=== PATIENT | male | born 1950 | race Caucasian/White ===

== ENCOUNTER 2018-05-14 12:12 | Inpatient (IN) ==
[2018-05-14 20:50] LABS: Baso % (Auto) 0.6 % (0.0-2.0); Eos % (Auto) 0.1 % (0.0-4.0); Hematocrit 48.3 % (39.0-51.0); Hemoglobin 16.6 gm/dL (13.0-17.0); Lymph # (Auto) 1.3 th/mm3 (1.0-4.8); Lymph % (Auto) 15.4 % (9.0-44.0); Mean Corpuscular HGB Conc 34.4 % (32.0-36.0); Mean Corpuscular Hemoglobin 33.2 pg (27.0-34.0); Mean Corpuscular Volume 96.4 fL (80.0-100.0); Mean Platelet Volume 7.2 fL (7.0-11.0); Mono # (Auto) 0.5 th/mm3 (0.0-0.9); Mono % (Auto) 6.4 % (0.0-8.0); Neut # (Auto) 6.3 th/mm3 (1.8-7.7); Neut % (Auto) 77.5 % (16.0-70.0); Platelet Count 178 th/mm3 (150-450); Red Blood Count 5.01 mil/mm3 (4.50-5.90); Red Cell Distribution Width 13.9 % (11.6-17.2); White Blood Count 8.1 th/mm3 (4.0-11.0)
[2018-05-14 21:05] LABS: Albumin 3.3 g/dL (3.4-5.0); Anion Gap 20 meq/L (5-15); Aspartate Aminotransferase 202 U/L (15-37); Blood Urea Nitrogen 28 mg/dL (7-18); Calcium 8.9 mg/dL (8.5-10.1); Carbon Dioxide 18.7 meq/L (21.0-32.0); Chloride 100 meq/L (98-107); Glomerular Filtration Rate 69 mL/min (>89); Glucose,Random 57 mg/dL (74-106); Potassium 4.3 meq/L (3.5-5.1); Sodium 139 meq/L (136-145)
[2018-05-14 21:06] LABS: Alanine Aminotransferase 98 U/L (12-78)
[2018-05-14 21:16] LABS: Alkaline Phosphatase 81 U/L (45-117); Total Protein 7.2 g/dL (6.4-8.2)
[2018-05-14 21:19] LABS: Alcohol 23 mg/dL (0-5)
[2018-05-14] MEDS: Sod Chloride 0.9% Inj 1,000 ML IV.SIG SCH ×2 (21:35→23:10)
[2018-05-14 21:49] LABS: Amphetamine Screen,Urine Neg (Neg); Barbiturate Screen,Urine Neg (Neg); Cannabinoid Screen,Urine Neg (Neg); Cocaine Screen,Urine Neg (Neg)
[2018-05-14 21:50] LABS: Opiate Screen,Urine Neg (Neg)
--- NOTE | 2018-05-14 21:55 | ED ---
HPI General Chief Complaint: Psychiatric Symptoms Stated Complaint: psych eval Time Seen by Provider: 05/14/18 20:05 Source: patient Mode of arrival: ambulatory Limitations: no limitations History of Present Illness HPI Narrative: 68 yo M patient reports suicidal ideation. He reports a recent discharge from inpatient hospitalization where he was evidently notified of liver disease and lung disease. The patient drinks alcohol every day, at least 5 whiskey drinks. He also smokes daily approximately 1 pack/day. He was advised to come to the ED by his steward/stewardess second class oncologist. The patient is worried about her cancer and if he does have cancer states he would not have a will live. He also mentioned intent to harm towards others however was nonspecific after some further discussion. Patient reports he does have a firearm in his house. MD complaint: Reports suicidal ideation and feels depressed Onset (ago): day(s) Related Data Allergies Allergy/AdvReac Type Severity Reaction Status Date / Time MEGAN Inhibitors Allergy Swelling Verified 05/14/18 20:15 of Lip/Tongue/Throat ARB-Angiotensin Receptor Allergy Swelling Verified 05/14/18 20:15 Antagonist of Lip/Tongue/Throat codeine Allergy Hives Verified 05/14/18 20:15 lisinopril Allergy Swelling Verified 05/14/18 20:15 of Lip/Tongue/Throat Review of Systems ROS: all other systems reviewed are negative PMFSH Medical History Medical History Anxiety (Acute) Depression (Acute) Hypertension (Acute) Pneumonia (Acute) Surgical History Surgical History History of cataract extraction with lens replacement (Acute) History of tonsillectomy (Acute) Social History Social History Smoking Status: Current every day smoker Tobacco Type: Cigarettes How Often Do You Have a Drink Containing Alcohol: 2 to 3 times a week Recent Travel in [facility] within the Last 8 Weeks: No Recent Out of Country Travel within the Last 8 Weeks: No Immunization History Tetanus Immunization: Unsure Exam Narrative Exam Narrative: GENERAL: 68-year-old male well-nourished well-developed mildly anxious SKIN: Focused skin assessment warm/dry. HEAD: Atraumatic. Normocephalic. EYES: Pupils equal and round. No scleral icterus. No injection or drainage. ENT: No nasal bleeding or discharge. Mucous membranes pink and moist. NECK: Trachea midline. No JVD. CARDIOVASCULAR: Regular rate and rhythm. No murmur appreciated. RESPIRATORY: No accessory muscle use. Clear to auscultation. Breath sounds equal bilaterally. GASTROINTESTINAL: Abdomen soft, non-tender, nondistended. Hepatic and splenic margins not palpable. MUSCULOSKELETAL: No obvious deformities. No clubbing. No cyanosis. No edema. NEUROLOGICAL: Awake and alert. No obvious cranial nerve deficits. Motor grossly within normal limits. Normal speech. PSYCHIATRIC: Suicidal ideation. Patient reports some homicidal ideation. Course Initial Documented Vital Signs Temperature 97.6 F 05/14/18 12:17 Pulse Rate 82 05/14/18 12:17 Respiratory Rate 16 05/14/18 12:17 Blood Pressure 132/73 05/14/18 12:17 Pulse Oximetry 96 05/14/18 12:17 Last Documented Vital Signs Temperature 97.6 F 05/14/18 12:17 Pulse Rate 79 05/14/18 20:16 Respiratory Rate 22 05/14/18 20:16 Blood Pressure 176/86 H 05/14/18 20:16 Pulse Oximetry 100 05/14/18 21:33 Medical Decision Making MDM Narrative Medical decision making narrative: The patient is a 88-year-old male who arrives with suicidal ideation after recent notification of chronic medical disease. Workup reveals an anion gap of 20 however he does have elevated alcohol level. He has received IV fluids and a repeat BMP was ordered to be obtained after 2 L normal saline infusion. Patient drinks whiskey daily and an element of alcohol withdrawal syndrome is of concern. He received 2 mg IV Ativan and 10 mg Valium. Anticipated closure of anion gap with IV hydration and repeat blood work will proceed medical clearance for evaluation by psychiatry service. Repeat BMP reveals anion gap closure. Patient is medically cleared for evaluation by psychiatry service. Patient will be monitored in the ER until time of transfer to the psychiatry unit or discharged home. Medical Screen Exam Complete: Yes Emergency Medical Condition: Yes Differential Diagnosis Differential Diagnosis: Altered mental status/psychosis due to infection/ environmental exposure/metabolic abnormality, polypharmacy, alcohol abuse/ intoxication, illicit or prescribed drug abuse, malingering/secondary gain, non- organic psychiatric disease Lab Data Lab results narrative: AG 20 Result diagrams: 05/14/18 20:30 05/14/18 22:55 Lab Results 05/14/18 05/14/18 05/14/18 Range/Units 20:30 20:30 21:30 WBC 8.1 (4.0-11.0) th/mm3 RBC 5.01 (4.50-5.90) mil/mm3 Hgb 16.6 (13.0-17.0) gm/dL Hct 48.3 (39.0-51.0) % MCV 96.4 (80.0-100.0) fL MCH 33.2 (27.0-34.0) pg MCHC 34.4 (32.0-36.0) % RDW 13.9 (11.6-17.2) % Plt Count 178 (150-450) th/mm3 MPV 7.2 (7.0-11.0) fL Neut % (Auto) 77.5 H (16.0-70.0) % Lymph % (Auto) 15.4 (9.0-44.0) % [place] % (Auto) 6.4 (0.0-8.0) % Eos % (Auto) 0.1 (0.0-4.0) % Baso % (Auto) 0.6 (0.0-2.0) % Neut # (Auto) 6.3 (1.8-7.7) th/mm3 Lymph # (Auto) 1.3 (1.0-4.8) th/mm3 [place] # (Auto) 0.5 (0.0-0.9) th/mm3 Eos # (Auto) 0.0 (0.0-0.4) th/mm3 Baso # (Auto) 0.0 (0.0-0.2) th/mm3 WBC Differential . Differential Comment Auto diff final Sodium 139 (136-145) meq/L Potassium 4.3 (3.5-5.1) meq/L Chloride 100 (98-107) meq/L Carbon Dioxide 18.7 L (21.0-32.0) meq/L Anion Gap 20 H (5-15) meq/L BUN 28 H (7-18) mg/dL Creatinine 1.07 (0.60-1.30) mg/dL Estimated GFR 69 L (>89) mL/min POC Glucose (68-110) mg/dl Random Glucose 57 L (74-106) mg/dL Calcium 8.9 (8.5-10.1) mg/dL Prot Corrected Calcium (8.5-10.1) mg/dL Total Bilirubin 1.5 H (0.2-1.0) mg/dL AST 202 H (15-37) U/L ALT 98 H (12-78) U/L Alkaline Phosphatase 81 (45-117) U/L Total Protein 7.2 (6.4-8.2) g/dL Albumin 3.3 L (3.4-5.0) g/dL TSH 2.040 (0.358-3.740) uIU/mL Urine Opiates Screen Neg (Neg) Ur Barbiturates Screen Neg (Neg) Ur Amphetamines Screen Neg (Neg) U Benzodiazepines Scrn Pos H (Neg) Urine Cocaine Screen Neg (Neg) U Cannabinoids Screen Neg (Neg) Serum Alcohol 23 H (0-5) mg/dL 05/14/18 05/14/18 Range/Units 22:54 22:55 WBC (4.0-11.0) th/mm3 RBC (4.50-5.90) mil/mm3 Hgb (13.0-17.0) gm/dL Hct (39.0-51.0) % MCV (80.0-100.0) fL MCH (27.0-34.0) pg MCHC (32.0-36.0) % RDW (11.6-17.2) % Plt Count (150-450) th/mm3 MPV (7.0-11.0) fL Neut % (Auto) (16.0-70.0) % Lymph % (Auto) (9.0-44.0) % [place] % (Auto) (0.0-8.0) % Eos % (Auto) (0.0-4.0) % Baso % (Auto) (0.0-2.0) % Neut # (Auto) (1.8-7.7) th/mm3 Lymph # (Auto) (1.0-4.8) th/mm3 [place] # (Auto) (0.0-0.9) th/mm3 Eos # (Auto) (0.0-0.4) th/mm3 Baso # (Auto) (0.0-0.2) th/mm3 WBC Differential Differential Comment Sodium 138 (136-145) meq/L Potassium 3.8 (3.5-5.1) meq/L Chloride 102 (98-107) meq/L Carbon Dioxide 25.1 (21.0-32.0) meq/L Anion Gap 11 (5-15) meq/L BUN 26 H (7-18) mg/dL Creatinine 1.06 (0.60-1.30) mg/dL Estimated GFR 70 L (>89) mL/min POC Glucose 219 H (68-110) mg/dl Random Glucose 189 H D (74-106) mg/dL Calcium 7.3 L* D (8.5-10.1) mg/dL Prot Corrected Calcium 8.2 L (8.5-10.1) mg/dL Total Bilirubin (0.2-1.0) mg/dL AST (15-37) U/L ALT (12-78) U/L Alkaline Phosphatase (45-117) U/L Total Protein 5.4 L D (6.4-8.2) g/dL Albumin (3.4-5.0) g/dL TSH (0.358-3.740) uIU/mL Urine Opiates Screen (Neg) Ur Barbiturates Screen (Neg) Ur Amphetamines Screen (Neg) U Benzodiazepines Scrn (Neg) Urine Cocaine Screen (Neg) U Cannabinoids Screen (Neg) Serum Alcohol (0-5) mg/dL Discharge Plan Discharge Disposition Patient Disposition: 30 Still Patient Physicians Team ED Provider: Eduardo Mane Primary Care Provider: Primary Care Maria Antonia Herring Discharge Interventions Interventions: Vital Signs Last Done: 05/14/18 20:16 Status ED Status: Ready for Discharge
[2018-05-14] MEDS ORDERED: Sod Chloride 0.9% Inj 1,000 ML IV.SIG SCH (22:00)
[2018-05-14 23:32] LABS: Calcium 7.3 mg/dL (8.5-10.1); Carbon Dioxide 25.1 meq/L (21.0-32.0); Potassium 3.8 meq/L (3.5-5.1)
[2018-05-14 23:54] LABS: Total Protein 5.4 g/dL (6.4-8.2)
[2018-05-15] MEDS ORDERED: Acetaminophen 325 MG Tablet PO PRN (21:13)
[2018-05-15] MEDS ORDERED: Aluminum/Magnesium/Simethacone Susp 30 ML UDC PO PRN (21:13)
[2018-05-15] MEDS: LORazepam 1 MG Tablet PO PRN (21:49)
[2018-05-16] MEDS ORDERED: hydroCHLOROthiazide 25 MG Tablet PO SCH (09:00)
[2018-05-16] MEDS ORDERED: Spironolactone 25 MG Tablet PO SCH (09:00)
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
--- NOTE | 2018-05-16 15:30 | P.DIET ---
Nutritional Evaluation Type of nutrition evaluation: initial Nutrition screening: Weight Loss > 10 lbs Subjective Subjective Comments: Reports good appetite. PO intake 100% for breakfast and lunch today. Objective - Diagnosis Depressive DO, Alcohol Abuse - Objective [place] body weight: 83.6 kg % IBW: 99 Body Weight Used for Calculations: Actual (82.5kg) Energy Needs - Lower Range (kCal/kg): 25 Energy Needs - Upper Range (kCal/kg): 30 Lower Limit kCal/kg (kCals): 2,063 Upper Limit kCal/kg (kCals): 2,475 Lower Limit Protein Factor (Grams per Kg): 1.0 Upper Limit Protein Factor (Grams per Kg): 1.4 Lower Protein Needs (Protein): 83 Upper Protein Needs (Protein): 116 Dietitian Reviewed in Medical Record: Current diet, Curent medications, Intake & Output, Labs, Medical history Diet Order: Regular Oral Diet Intake Amount: Excellent 90%+ Objective Comments: PMH Includes: Anxiety, Depression, HTN, Pneumonia Glucose 189, POC Glucose 219 Meds Include: Atarax, Ativan, Pravachol, Aldactone Assessment Assessment: Pt is at nutritional risk r/t reported recent unintentional wt loss. Adequate po intake 50% or greater for meals here. Should a CHO-controlled diet be indicated, then Rec a [id number]. Assess need for an oral nutritional supplement as appropriate. Labs reviewed. Dietitian will follow. Recommendations: 1. Should a CHO-controlled diet be indicated, then Rec a [id number] 2. Assess need for an oral nutritional supplement as appropriate 3. Dietitian will follow Dietitian to Monitor: Lab values, Glucose level, Intake & Output, Weight change , PO Intake, Medical course
--- NOTE | 2018-05-16 17:17 | P.CON ---
History of Present Illness Service: [facility] Consult date: 05/16/18 Requesting Physician: Lai Vyas Reason for Consult: Security Researcher medical management Primary Care Provider: No Primary Care Physician Chief Complaint: "I have no concern, I have been moved alot from one room to the other" History of Present Illness: Patient is a 68-year-old male with past medical history of alcohol abuse, HTN, HLD, low potassium who initially came into the hospital for reports of suicidal ideation. He is now admitted to inpatient psychiatry and further evaluation. Consulted for assistance with medical management. Patient seen and examined today. As per nursing, patient has reported that he was discharged from another hospital where and he was notified to have liver and lung disease. Patient was asked regarding any concerns about liver or lung disease. Patient states that he was not diagnosed with any liver or lung disease. Patient admits to drinking 4-5 glasses of whiskey every day for the past 50 years of his life. States that his dad was an alcoholic. He reports that he has high blood pressure and high cholesterol and takes medication for it but cannot remember what medications he was on. Denies pain and discomfort. Denies SOB/ dyspnea. Denies chest pain, palpitations, headaches, dizziness. Denies fevers, chills, n/v/d. Denies dysuria. Review of Systems All other systems reviewed negative except as stated in HPI PMFSH - History History Provided By: Patient - Medical History Medical History: Medical History (Last Reviewed 05/16/18 @ 18:04 by CONG Bonilla) Anxiety Depression Hypertension Pneumonia - Surgical History Surgical History: Surgical History (Last Reviewed 05/16/18 @ 18:04 by CONG Bonilla) History of cataract extraction with lens replacement History of tonsillectomy - Family History Family History: Family History (Last Reviewed 05/16/18 @ 18:04 by CONG Bonilla) Other Alcohol abuse Family history normal - Social History I have reviewed the patient's Social History: Yes - Tobacco History Second Hand Smoke Exposure: Yes Tobacco Use In Past 30 Days: Yes Smoking Status: Current every day smoker Tobacco Type: Cigarettes - Alcohol History How Often Do You Have a Drink Containing Alcohol: 4 or more times a week - Substance Use History Substance History: Active Abuse - Substance Use Type Alcohol Status: Active Route Used: By Mouth Frequency: drinks daily, 5-6 drinks ( however I'm feeling) Reason for Use: Calm Down Comment: Patient reports drinking is part of his daily routine. - Travel History Recent Travel in the [place] Within the Last 8 Weeks: No Recent Travel Out of the Country Within the Last 8 Weeks: No - Immunization History Tetanus Immunization: Unable to Assess Hx Influenza Vaccine This Season: No Medications and Allergies Active Medications: Active Medications Acetaminophen (Tylenol) 650 mg PO Q4H PRN PRN Reason: Pain 1-5 or Temp >101F Al Hydrox/Mg Hydrox/Simethicone (Mag-Al Plus Susp Liq) 30 ml PO Q6H PRN PRN Reason: DYSPEPSIA Al Hydroxide/Mg Hydroxide (Milk Of Magnesia Liq) 30 ml PO DAILY PRN PRN Reason: CONSTIPATION Al Hydroxide/Mg Hydroxide (Milk Of Magnesia Liq) 30 ml PO Q12H PRN PRN Reason: Mild Constipation Diphenhydramine HCl (Benadryl) 50 mg PO HS PRN PRN Reason: INSOMNIA Escitalopram Oxalate (Lexapro) 10 mg PO DAILY [facility] Flumazenil (Romazecon Inj) 0.2 mg IV.PUSH Q1M PRN PRN Reason: OVERSEDATION Hydrochlorothiazide (Hydrodiuril) 25 mg PO DAILY [facility] Last Admin: 05/16/18 08:15 Dose: 25 mg Hydrochlorothiazide (Hydrodiuril) 25 mg PO DAILY [facility] Hydroxyzine HCl (Atarax) 50 mg PO Q6H PRN PRN Reason: ANXIETY Lorazepam (Ativan) 1 mg PO Q4H PRN PRN Reason: for CIWA 8-10 Last Admin: 05/15/18 21:49 Dose: 1 mg Lorazepam (Ativan) 2 mg PO Q2H PRN PRN Reason: for CIWA 11-14 Lorazepam (Ativan Inj) 2 mg IV.PUSH Q2H PRN PRN Reason: for CIWA 11-14 Lorazepam (Ativan Inj) 2 mg IV.PUSH Q1H PRN PRN Reason: for CIWA 15-20 Lorazepam (Ativan Inj) 1 mg IV.PUSH Q4H PRN PRN Reason: for CIWA 8-10 Lorazepam (Ativan Inj) 2 mg IV.PUSH Q15M PRN PRN Reason: for CIWA > 20 Nicotine (Habitrol 21 Mg Patch.24 Hr) 1 patch T-DERMAL DAILY [facility] Last Admin: 05/16/18 08:22 Dose: Not Given Patch Removal (Remove Old Patch) 1 each T-DERMAL HS [facility] Pravastatin Sodium (Pravachol) 40 mg PO HS [facility] Last Admin: 05/15/18 22:16 Dose: 40 mg Pravastatin Sodium (Pravachol) 40 mg PO QPM [facility] Sodium Chloride (Ns Flush) 2 ml IV.FLUSH PRN PRN PRN Reason: FLUSH AFTER USING IV ACCESS Spironolactone (Aldactone) 25 mg PO DAILY [facility] Last Admin: 05/16/18 08:15 Dose: 25 mg Spironolactone (Aldactone) 25 mg PO DAILY [facility] Allergies Allergy/AdvReac Type Severity Reaction Status Date / Time MEGAN Inhibitors Allergy Swelling Verified 05/14/18 20:15 of Lip/Tongue/Throat ARB-Angiotensin Receptor Allergy Swelling Verified 05/14/18 20:15 Antagonist of Lip/Tongue/Throat codeine Allergy Hives Verified 05/14/18 20:15 lisinopril Allergy Swelling Verified 05/14/18 20:15 of Lip/Tongue/Throat Home Medications Medication Instructions Recorded Confirmed Type hydrochlorothiazide 25 mg PO DAILY 05/15/18 05/15/18 History simvastatin 20 mg PO QPM 05/15/18 05/15/18 History spironolactone 25 mg PO DAILY 05/15/18 05/15/18 History Physical Exam Vital signs: Vital Signs 05/15/18 17:43 05/15/18 22:25 05/16/18 06:27 Temperature 98.3 F 98.3 F Pulse Rate 77 81 76 Respiratory Rate 20 18 17 Blood Pressure 136/79 164/93 H 142/84 H Pulse Oximetry 98 98 96 05/16/18 16:40 Temperature 97.6 F Pulse Rate 78 Respiratory Rate 18 Blood Pressure 117/76 Pulse Oximetry 100 Intake & Output 05/15/18 05/16/18 05/16/18 18:59 06:59 18:59 Weight 81.3 kg Other: Weight On Admission 81.3 kg Narrative: GENERAL: This is a well-nourished, well-developed patient, in no apparent distress. SKIN: Warm and dry HEENT: Normocephalic. Pupils equal round and reactive. Nose without bleeding. Airway patent. NECK: Trachea midline. CARDIOVASCULAR: Regular rate and rhythm without murmurs, gallops, or rubs. RESPIRATORY: Clear to auscultation. Breath sounds equal bilaterally. No wheezes , rales, or rhonchi. GASTROINTESTINAL: Abdomen soft, non-tender, nondistended. Bowel Sounds normoactive x4. MUSCULOSKELETAL: Extremities without clubbing, cyanosis, or edema. NEUROLOGICAL: Awake and alert. No focal neuro deficit. Moves all extremities. Normal speech. Assessment and Plan - Plan Patient is a 68-year-old male with past medical history of alcohol abuse, HTN, HLD, low potassium who initially came into the hospital for reports of suicidal ideation. He is now admitted to inpatient psychiatry and further evaluation. Consulted for assistance with medical management. Depression, suicidal ideation -Managed by psychiatry team EtOH abuse -CIWA -Folic acid, multivitamin, thiamine -Monitor for alcohol withdrawal/ seizures -No tremors noted Transaminitis -Possibly related to alcohol abuse -Avoid hepatotoxins -Recheck LFTs -US liver ordered, hepatitis panel r/o -may also check AFP, GTT HTN -Continue home medications hydrochlorothiazide, spironolactone -Clonidine as needed -Monitor BP HLD -Previously on simvastatin. Elevated LFTs. Will hold for now -Check lipid profile Tobacco abuse -Counseled. Nicotine patch DVT prop ambulatory Thank you for this consultation. We will follow patient with you. Code Status: Full Code Discussed Condition With: Patient, nursing Discharge Planning: DC disposition by primary team
[2018-05-16] MEDS: LORazepam 1 MG Tablet PO PRN (20:24)
[2018-05-17 06:23] VITALS: RESP 16
[2018-05-17 08:43] LABS: Baso % (Auto) 0.3 % (0.0-2.0); Eos # (Auto) 0.1 th/mm3 (0.0-0.4); Eos % (Auto) 1.7 % (0.0-4.0); Hematocrit 43.1 % (39.0-51.0); Hemoglobin 15.3 gm/dL (13.0-17.0); Lymph # (Auto) 2.4 th/mm3 (1.0-4.8); Lymph % (Auto) 30.8 % (9.0-44.0); Mean Corpuscular HGB Conc 35.6 % (32.0-36.0); Mean Corpuscular Hemoglobin 34.1 pg (27.0-34.0); Mean Corpuscular Volume 95.9 fL (80.0-100.0); Mean Platelet Volume 8.2 fL (7.0-11.0); Mono # (Auto) 0.5 th/mm3 (0.0-0.9); Mono % (Auto) 6.4 % (0.0-8.0); Neut # (Auto) 4.7 th/mm3 (1.8-7.7); Neut % (Auto) 60.8 % (16.0-70.0); Platelet Count 131 th/mm3 (150-450); Red Blood Count 4.49 mil/mm3 (4.50-5.90); Red Cell Distribution Width 13.9 % (11.6-17.2); White Blood Count 7.7 th/mm3 (4.0-11.0)
[2018-05-17] MEDS ORDERED: Escitalopram 10 MG Tablet PO SCH (09:00)
[2018-05-17 09:25] LABS: Albumin 2.9 g/dL (3.4-5.0); Anion Gap 8 meq/L (5-15); Aspartate Aminotransferase 71 U/L (15-37); Blood Urea Nitrogen 24 mg/dL (7-18); Calcium 9.3 mg/dL (8.5-10.1); Carbon Dioxide 31.6 meq/L (21.0-32.0); Chloride 96 meq/L (98-107); Glomerular Filtration Rate 77 mL/min (>89); Glucose,Random 86 mg/dL (74-106); Potassium 3.2 meq/L (3.5-5.1); Sodium 136 meq/L (136-145)
[2018-05-17] MEDS: hydroCHLOROthiazide 25 MG Tablet PO SCH (09:25)
[2018-05-17] MEDS: Folic Acid 1 MG Tablet PO SCH (09:26)
[2018-05-17] MEDS: Spironolactone 25 MG Tablet PO SCH (09:26)
[2018-05-17 09:30] LABS: Alanine Aminotransferase 56 U/L (12-78); Alkaline Phosphatase 72 U/L (45-117); Total Protein 6.6 g/dL (6.4-8.2)
--- NOTE | 2018-05-17 13:33 | P.PNPSY ---
Subjective Remarks: Patient seen in day room with medical student Speedy, and RN, chart reviewed, patient compliant medication. Patient states she slept better last night in spite of the noise on the unit. He overall feels calmer improved denying suicidality voices or visions today. Medicines have seen him today and that note is reviewed and agreed with patient continues to improve consider discharge tomorrow Review of Systems All other systems reviewed negative except as stated in HPI Mental Status Examination Appearance: Other (Somewhat scruffy) Consciousness: Alert Orientation: x4 Motor Activity: Other (Patient somewhat weak walking needs support to stand up) Speech: Unremarkable Language: Adequate Fund of Knowledge: Adequate Attention and Concentration: Adequate Memory: Unremarkable Mood: Sad Affect: Other (Decreased range and intensity) Thought Process & Associations: Intact Thought Content: Preoccupations (Some preoccupation with his medical issues) Hallucination Type: None Delusion Type: None Suicidal Ideation: No Suicidal Plan: No Suicidal Intention: No Homicidal Ideation: No Homicidal Plan: No Homicidal Intention: No Insight: Fair Judgment: Poor Assessment and Plan - Assessment (1) Adjustment disorder with mixed disturbance of emotions and conduct Code(s): F43.25 - Adjustment disorder with mixed disturbance of emotions and conduct Status: Acute (2) Alcohol abuse Code(s): F10.10 - Alcohol abuse, uncomplicated Status: Acute - Plan Plan: Patient mood improving he denies suicidality voices or visions. Compliant medication for now continue treatment consider discharge 1-2 days Justification for Continued Inpatient Stay: At this time patient would decompensate a place to a lower level of care Discharge Planning: To be determined Request Healthcare Surrogate/Guardian Advocate?: No
--- NOTE | 2018-05-17 16:42 | P.PN ---
Subjective Interval history: Follow-up visit transaminitis, alcohol abuse, possible cirrhosis. Patient seen and examined today. Reports he is doing okay. Denies any nausea, vomiting, diarrhea. Denies any abdominal pain. States he had ultrasound of his liver done in February and does not know any results from it or any findings for it. Denies any acute issues overnight. Denies any tremors, increase anxiety, any signs and symptoms of alcohol withdrawal. ` No acute issues as per nursing. Physical Exam Vital signs: Vital Signs 05/16/18 16:40 05/17/18 06:00 Temperature 97.6 F 97.9 F Pulse Rate 78 65 Respiratory Rate 18 16 Blood Pressure 117/76 167/88 H Pulse Oximetry 100 97 Intake & Output 05/16/18 05/17/18 05/17/18 18:59 06:59 18:59 Weight 81.2 kg Narrative: GENERAL: This is a well-nourished, well-developed patient, in no apparent distress. SKIN: Warm and dry HEENT: Normocephalic. Pupils equal round and reactive. Nose without bleeding. Airway patent. NECK: Trachea midline. CARDIOVASCULAR: Regular rate and rhythm without murmurs, gallops, or rubs. RESPIRATORY: Clear to auscultation. Breath sounds equal bilaterally. No wheezes , rales, or rhonchi. GASTROINTESTINAL: Abdomen soft, non-tender, nondistended. Bowel Sounds normoactive x4. MUSCULOSKELETAL: Extremities without clubbing, cyanosis, or edema. NEUROLOGICAL: Awake and alert. No focal neuro deficit. Moves all extremities. Normal speech. Results - Labs CBC & Chem 7: 05/17/18 07:48 05/17/18 07:48 Laboratory Results - last 24 hr 05/17/18 05/17/18 07:48 07:48 WBC 7.7 RBC 4.49 L Hgb 15.3 Hct 43.1 MCV 95.9 MCH 34.1 H MCHC 35.6 RDW 13.9 Plt Count 131 L MPV 8.2 Neut % (Auto) 60.8 Lymph % (Auto) 30.8 [place] % (Auto) 6.4 Eos % (Auto) 1.7 Baso % (Auto) 0.3 Neut # (Auto) 4.7 Lymph # (Auto) 2.4 [place] # (Auto) 0.5 Eos # (Auto) 0.1 Baso # (Auto) 0.0 WBC Differential . Differential Comment Auto diff final Sodium 136 Potassium 3.2 L Chloride 96 L Carbon Dioxide 31.6 Anion Gap 8 BUN 24 H Creatinine 0.98 Estimated GFR 77 L Random Glucose 86 Calcium 9.3 Total Bilirubin 1.1 H AST 71 H ALT 56 Alkaline Phosphatase 72 Total Protein 6.6 D Albumin 2.9 L Assessment and Plan - Plan Patient is a 68-year-old male with past medical history of alcohol abuse, HTN, HLD, low potassium who initially came into the hospital for reports of suicidal ideation. He is now admitted to inpatient psychiatry and further evaluation. Consulted for assistance with medical management. Depression, suicidal ideation -Managed by psychiatry team EtOH abuse -CIWA -Folic acid, multivitamin, thiamine -Monitor for alcohol withdrawal/ seizures -No tremors noted Hypokalemia -Supplements given -Repeat labs in a.m. Transaminitis -Possibly related to alcohol abuse -Avoid hepatotoxins -Recheck LFTs -US liver ordered, hepatitis panel r/o any other etiology. Pending -LFTs trending down HTN -Continue home medications hydrochlorothiazide, spironolactone -Clonidine as needed -Monitor BP HLD -Previously on simvastatin. Elevated LFTs. Will hold for now -Check lipid profile Tobacco abuse -Counseled. Nicotine patch DVT prop ambulatory Thank you for this consultation. We will follow patient with you. Discharge Planning: DC disposition by primary team
[2018-05-17 18:06] LABS: Chol/HDL Ratio 2.02 Ratio
[2018-05-17 23:21] LABS: Hepatitis A IgM Antibody Nonreactive (Nonreactive)
[2018-05-17 23:22] LABS: Hepatitits B Surface Antigen Nonreactive (Nonreactive)
[2018-05-18 06:25] VITALS: BP 133/80; PULSE 58; TEMP 98; O2SAT 98
[2018-05-18 08:18] LABS: Baso % (Auto) 0.3 % (0.0-2.0); Eos # (Auto) 0.2 th/mm3 (0.0-0.4); Eos % (Auto) 1.9 % (0.0-4.0); Hematocrit 42.2 % (39.0-51.0); Hemoglobin 14.6 gm/dL (13.0-17.0); Lymph # (Auto) 2.4 th/mm3 (1.0-4.8); Lymph % (Auto) 29.8 % (9.0-44.0); Mean Corpuscular HGB Conc 34.6 % (32.0-36.0); Mean Corpuscular Hemoglobin 33.7 pg (27.0-34.0); Mean Corpuscular Volume 97.4 fL (80.0-100.0); Mean Platelet Volume 8.3 fL (7.0-11.0); Mono # (Auto) 0.6 th/mm3 (0.0-0.9); Mono % (Auto) 7.2 % (0.0-8.0); Neut # (Auto) 4.9 th/mm3 (1.8-7.7); Neut % (Auto) 60.8 % (16.0-70.0); Platelet Count 137 th/mm3 (150-450); Red Blood Count 4.33 mil/mm3 (4.50-5.90); Red Cell Distribution Width 13.7 % (11.6-17.2)
[2018-05-18 08:42] LABS: Albumin 2.8 g/dL (3.4-5.0); Anion Gap 11 meq/L (5-15); Aspartate Aminotransferase 79 U/L (15-37); Blood Urea Nitrogen 27 mg/dL (7-18); Calcium 8.9 mg/dL (8.5-10.1); Carbon Dioxide 30.8 meq/L (21.0-32.0); Chloride 97 meq/L (98-107); Glomerular Filtration Rate 69 mL/min (>89); Glucose,Random 88 mg/dL (74-106); Potassium 3.6 meq/L (3.5-5.1); Sodium 139 meq/L (136-145)
[2018-05-18 08:51] LABS: Alanine Aminotransferase 66 U/L (12-78); Alkaline Phosphatase 75 U/L (45-117); Total Protein 6.5 g/dL (6.4-8.2)
[2018-05-18] MEDS: Folic Acid 1 MG Tablet PO SCH (09:13)
[2018-05-18] MEDS: Spironolactone 25 MG Tablet PO SCH (09:13)
[2018-05-18] MEDS: hydroCHLOROthiazide 25 MG Tablet PO SCH (09:13)
--- NOTE | 2018-05-18 09:18 | US ---
EXAM DATE: 05/18/2018 12:00 AM EDT AGE/SEX: 68 years / Male INDICATIONS: Elevated LFT's. CLINICAL DATA: This is the patient's initial encounter. Patient reports that signs and symptoms have been present for 1 day and indicates a pain score of 0/10. MEDICAL/SURGICAL HISTORY: Hypertension. Hypercholesterolemia. ETOH abuse. Tonsillectomy. COMPARISON: No prior exams available for comparison. MEASUREMENTS: Liver:__ 13.5 cm. Common Bile Duct:__ 4mm. Right Kidney:__ 10.2 x 6.0 x 5.6 cm. FINDINGS: Liver: Increased echotexture without focal lesion or ductal dilation. Portal Vein: Hepatopedal flow seen in portal vein. Common Duct: No intraluminal mass or stone visualized. Gallbladder: A 2 mm echogenic nonshadowing structure is seen within the wall the gallbladder consist ent with a small polyp. A 9 mm echogenic focus which is mobile is seen involving the lumen. Demonstra jenny no wall thickening or pericholecystic fluid. Pancreas: The visualized portions are within normal limits Right Kidney: Normal echotexture and cortical thickness. No mass or hydronephrosis. Other: None. CONCLUSION: 1. 2 mm gallbladder polyp. 2. 9 mm mobile gallstone. 3. Mild hepatic steatosis. Electronically signed by: Jose A Vaz MD 05/18/2018 9:16 AM EDT
--- NOTE | 2018-05-18 10:37 | P.DSPSY ---
Psychiatry Discharge Summary Inpatient Psychiatric care?: Yes Advance Directives: No Mental Health Advance Directive: No Health Care Proxy: No - Admission Admission Date: May 15, 2018 20:50 - Admission Diagnosis (1) Adjustment disorder with mixed disturbance of emotions and conduct Code(s): F43.25 - Adjustment disorder with mixed disturbance of emotions and conduct (2) Alcohol abuse Code(s): F10.10 - Alcohol abuse, uncomplicated Brief History: Patient is a 68-year-old white male who comes here voluntarily with a history of depression and vague suicidal ideation also some perseverating related to concerns about his physical conditions pulmonary and abdominal pain cardiac. Patient seen screen in the ED urine toxicology positive for benzodiazepines, blood alcohol level of 23. EMR review of this is patient's first visit with us at the present time patient sitting quietly in his room on 2700 nurse Dariana present throughout session. Patient is alert and oriented white male appears about his stated age tall jerome haired somewhat scruffy. Stating that this past summer he went to [facility] for various medical issues who was admitted there for 3 days discharged with questions to go see his filling hauler weaving. Patient became concerned about the possibility of significant cardiac issues. He was cleared by the filling hauler weaving he then received notice that he had to go see a cancer specialist he did see that specialist will follow there is no signs of cancer. This is been perseverating with him somewhat. Patient also is acknowledged alcoholic has been drinking since of the quite young age. He drinks daily he drinks basically whiskey he drinks with his roommate and another border in the house for events her room. He denies blacking out acknowledges passing out, he denies detox state he was in a rehab once about 10 years ago in [place]. States she is only had 1 DUI in the past. There is adverse legal charges relating to fighting and other antisocial behaviors. Patient denies any prior psychiatric contact hospitalizations or psychotropic medications. They does state with these events this past summer he has had increased depressed mood with initial and mid insomnia, decreased energy. Decreased concentration and attention. He denies voices or visions with this denies any other self medicating use of the alcohol. Says he has had suicidal ideation in the past though none today. He states his only other drug use was with marijuana many years ago. Patient states she is has 2 adult children that he has no contact with. He states both his parents were drinkers though he denies any physical or sexual abuse. Denies mental health history in his family. 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 At this time patient meets criteria for further psychiatric hospitalization on a voluntary basis. I feel he does have a depression related to the stressors and incidents over the summer. We will start him on Lexapro 10 mg daily. Patient is on the [place] protocol we will continue that at the present time off from Atarax and Benadryl as needed. It appears she does wish to find a sober living type situation with liver counselors discuss that with him Tobacco Use In Past 30 Days: Yes How Often Do You Have a Drink Containing Alcohol: 4 or more times a week Hospital Course: Patient's hospital course was uneventful, patient did continue with the detox solutionand signs of withdrawal symptoms. He has been compliant with his medications. He is eating and sleeping better. He now denies suicidality homicidality voices or visions. States he feels better and is ready to go home today. At the stomach feel patient reached maximum benefit of this hospitalization thus will be discharged today to himself Rx times 1 month follow -up [facility] medication management, refer to AA, refer to [facility] for outpatient involuntary substance abuse assessment, and absolute sobriety - Discharge Discharge Date: 05/18/18 - Discharge Diagnosis (1) Adjustment disorder with mixed disturbance of emotions and conduct Code(s): F43.25 - Adjustment disorder with mixed disturbance of emotions and conduct Status: Acute Discharge Disposition: Home - Discharge Instructions Discharge Diet: Regular Diet Activities You Can Perform: Regular- No Restrictions - Discharge Time > 30 minutes Mental Status Examination Appearance: Other (Somewhat scruffy) Consciousness: Alert Orientation: x4 Motor Activity: Other (Patient somewhat weak walking needs support to stand up) Speech: Unremarkable Language: Adequate Fund of Knowledge: Adequate Attention and Concentration: Adequate Memory: Unremarkable Mood: Sad Affect: Other (Decreased range and intensity) Thought Process & Associations: Intact Thought Content: Preoccupations (Some preoccupation with his medical issues) Hallucination Type: None Delusion Type: None Suicidal Ideation: No Suicidal Plan: No Suicidal Intention: No Homicidal Ideation: No Homicidal Plan: No Homicidal Intention: No Insight: Fair Judgment: Poor Discharge/Advance Care Plan - Results Vital Signs: Last Vital Signs Temp 98 F 05/18/18 06:25 Pulse 58 L 05/18/18 06:25 Resp 16 05/18/18 06:25 BP 133/80 05/18/18 06:25 Pulse Ox 98 05/18/18 06:25 Lab Results: Abnormal Lab Results 05/17/18 05/17/18 05/18/18 17:25 17:25 07:20 WBC 8.0 RBC 4.33 L Hgb 14.6 Hct 42.2 MCV 97.4 MCH 33.7 MCHC 34.6 RDW 13.7 Plt Count 137 L MPV 8.3 Neut % (Auto) 60.8 Lymph % (Auto) 29.8 [place] % (Auto) 7.2 Eos % (Auto) 1.9 Baso % (Auto) 0.3 Neut # (Auto) 4.9 Lymph # (Auto) 2.4 [place] # (Auto) 0.6 Eos # (Auto) 0.2 Baso # (Auto) 0.0 WBC Differential . Differential Comment Auto diff final Sodium Potassium Chloride Carbon Dioxide Anion Gap BUN Creatinine Estimated GFR Random Glucose Calcium Total Bilirubin AST ALT Alkaline Phosphatase Total Protein Albumin Triglycerides 148 Cholesterol 158 LDL Cholesterol, Calc 50 HDL Cholesterol 78.0 H Cholesterol/HDL Ratio 2.02 Hepatitis A IgM Ab Nonreactive Hep Bs Antigen Nonreactive Hep B Core IgM Ab Nonreactive Hep C IgG Ab Nonreactive 05/18/18 07:20 WBC RBC Hgb Hct MCV MCH MCHC RDW Plt Count MPV Neut % (Auto) Lymph % (Auto) [place] % (Auto) Eos % (Auto) Baso % (Auto) Neut # (Auto) Lymph # (Auto) [place] # (Auto) Eos # (Auto) Baso # (Auto) WBC Differential Differential Comment Sodium 139 Potassium 3.6 Chloride 97 L Carbon Dioxide 30.8 Anion Gap 11 BUN 27 H Creatinine 1.07 Estimated GFR 69 L Random Glucose 88 Calcium 8.9 Total Bilirubin 0.9 AST 79 H ALT 66 Alkaline Phosphatase 75 Total Protein 6.5 Albumin 2.8 L Triglycerides Cholesterol LDL Cholesterol, Calc HDL Cholesterol Cholesterol/HDL Ratio Hepatitis A IgM Ab Hep Bs Antigen Hep B Core IgM Ab Hep C IgG Ab Laboratory Results Triglycerides 148 mg/dL (42-150) 05/17/18 17:25 Cholesterol 158 mg/dL (120-200) 05/17/18 17:25 LDL Cholesterol, Calc 50 mg/dL (0-99) 05/17/18 17:25 HDL Cholesterol 78.0 mg/dL (40.0-60.0) H 05/17/18 17:25 TSH 2.040 uIU/mL (0.358-3.740) 05/14/18 20:30 Summary of Procedures: None done Imaging: ITS Impressions Liver Ultrasound 05/18/18 00:00 CONCLUSION: 1. 2 mm gallbladder polyp. 2. 9 mm mobile gallstone. 3. Mild hepatic steatosis. Pending Results: None - Medications Number of antipsychotic medications at discharge: 0 - Discharge Care Plan Goals to Promote Your Health: * To prevent worsening of your condition and complications * To maintain your health at the optimal level Directions to Meet Your Goals: Take your medications as prescribed Follow your dietary instruction Follow activity as directed Keep your appointments as scheduled Take your immunizations and boosters as scheduled If your symptoms worsen call your PCP, if no PCP go to Urgent Care Center or Emergency Room For 27/02 questions related to your inpatient stay or results of tests pending at discharge, please contact Dr. Lai Vyas MD at Smoking is Dangerous to Your Health. Avoid second hand smoking
== END 2018-05-18 15:25 | disposition home or self-care (01) ==
LOC: NEPD 12:12 → NEDA 05-15 20:50 → H270 05-15 22:06 → H260 05-16 17:15
PROVIDERS: ADMIT Psychiatry & Neurology Psychiatry; ATTEND Psychiatry & Neurology Psychiatry